=== PATIENT | female | born 1950 | race Caucasian/White ===

== ENCOUNTER → 2020-08-28 | Outpatient (CLI) | payer MEDICARE, OTHER ==
--- NOTE | 2020-08-28 13:43 | KCIC ---
DEXA INDICATION: Osteoporosis screening. Postmenopausal screening COMPARISON: None. TECHNIQUE: Bone densitometry was performed through the lumbar spine and proximal femur. FINDINGS: Lumbar Spine: BMD: 1.15 T-Score: 0.9 Proximal Femur: BMD: 0.85 T-Score: -0.7 IMPRESSION: 1. Lumbar spine falls within the normal range. 2. Proximal femur falls within the lower limits of normal range. Electronically signed by: Fidencio Mckeon MD (08/28/2020 1:40 PM) [id number]
--- NOTE | 2020-08-29 19:26 | KCIC ---
BILATERAL SCREENING MAMMOGRAM History: Routine screening. Comparison: Bilateral mammogram May 01, 2016 and back to 2011. Technique: Routine bilateral digital mammogram views were obtained. Findings: Breast Tissue Density B : There are scattered areas of fibroglandular density. There is a tiny nodular asymmetry in the left breast best seen on the MLO view, probably near the 4:00 B position. There are no dominant masses, suspicious microcalcifications, or architectural distortion. IMPRESSION: Tiny nodular asymmetry in the left breast. Recommend further evaluation with spot compression left MLO and CC digital views. If finding persists ultrasound is recommended. BI-RADS Category 0: Incomplete: Need additional imaging evaluation. The images were reviewed with computer aided detection. Patient information is entered into the reminder system with a target due date for the next screening mammogram. Mammography is the most sensitive method for finding small breast cancers, but it does not detect them all and is not a substitute for careful clinical examination. A negative mammogram does not negate a clinically suspicious finding and should not result in delay in biopsying a clinically suspicious abnormality. "Our facility is accredited by the [employer] Mammography Program." Electronically signed by: Mak Hickey MD (08/29/2020 7:23 PM) [facility]
== END ==
LOC: KCIC MAMMO 10:34
PROVIDERS: ATTEND Internal Medicine
DX: Z12.31 Encounter for screening mammogram for malignant neoplasm of breast (principal); M81.8 Other osteoporosis without current pathological fracture; N64.89 Other specified disorders of breast
CPT/HCPCS: 77067; 77080

== ENCOUNTER → 2020-09-05 | Outpatient (CLI) | payer MEDICARE, OTHER ==
--- NOTE | 2020-09-05 09:38 | RAD ---
US THYROID: 09/05/2020 6:46 AM Indication: 69 years old Female. Thyroid nodule Comparison: None. TECHNIQUE: Sonographic evaluation of the thyroid gland was performed utilizing grayscale and color Do ppler imaging. FINDINGS: Right lobe: Normal in morphology and echotexture without significant hyperemia. Size: 5.5 x 2.0 x 2.1 cm Nodules: No suspicious nodules. Left lobe: Normal in morphology and echotexture without significant hyperemia. Size: 5.8 x 1.8 x 2.0 cm Nodules: No suspicious nodules. Isthmus: 3 mm and within normal limits. IMPRESSION: 1. No suspicious thyroid nodules identified. Electronically signed by: Debbie Piña MD (09/05/2020 9:35 AM) [id number]
== END ==
LOC: US 06:48
PROVIDERS: ATTEND Internal Medicine
DX: E04.1 Nontoxic single thyroid nodule (principal)
CPT/HCPCS: 76536

== ENCOUNTER → 2020-09-18 | Outpatient (CLI) | payer MEDICARE, OTHER ==
--- NOTE | 2020-09-18 15:37 | RAD ---
Examination: 1. Left digital diagnostic mammogram. 2. Limited left breast ultrasound. INDICATION: 69-year-old woman recalled from screening for a nodular asymmetry in the lower outer quad rant left breast. COMPARISON: Mammograms of 02/05/2012, 08/28/2020. TECHNIQUE: Spot compression views of the left breast in the CC and MLO projections were obtained with 2-D technique in addition to full field left ML view. This was reviewed with computer-aided detectio n. Targeted ultrasound of the lower outer quadrant left breast was next pursued. FINDINGS: Heterogeneously dense breast parenchyma. Additional mammographic views left breast show gradual involution in breast tissue density from 8 yea rs ago with greater conspicuity of a 7 mm isodense mass with obscured margins in the posterior lower outer quadrant left breast associated with a coarse calcification that has been present since at leas t 2011. Targeted ultrasound of the lower outer quadrant left breast identifies a hypoechoic slightly irregula r 1.2 cm mass in the posterior left breast at the 3:30 o'clock position 6 cm from the nipple that lik evelyn correlates with the mammographic finding recalled from screening. Patient reports she is preparing to travel to the [facility] for a few months for the [employer] and expresses a preference if a biopsy is to be performed to be done in the immediate near future. IMPRESSION: Suspicious 7 mm mass in the lower outer quadrant left breast at the 3:30 o'clock position 6 cm from t he nipple. BI-RADS Category 4 Findings suspicious for malignancy. Recommend ultrasound-guided core needle left breast biopsy. Alternatively, stereotactic biopsy target ing the mass or the associated calcification could be pursued. Discussed with patient. Also discussed with Dr. Salmeron, who took the report and recommendations by telephone on behalf of the patient's ref erring physician Dr. Jennifer Samuel at 3:11 PM on 09/18/2020. She has requested a fax copy of this report be made available to her. We will attempt to accommodate her request at the earliest available opp[facility]. Electronically signed by: Anh Lee MD (09/18/2020 3:34 PM) [id number]
--- NOTE | 2020-09-18 15:37 | RAD ---
Examination: 1. Left digital diagnostic mammogram. 2. Limited left breast ultrasound. INDICATION: 69-year-old woman recalled from screening for a nodular asymmetry in the lower outer quad rant left breast. COMPARISON: Mammograms of 02/05/2012, 08/28/2020. TECHNIQUE: Spot compression views of the left breast in the CC and MLO projections were obtained with 2-D technique in addition to full field left ML view. This was reviewed with computer-aided detectio n. Targeted ultrasound of the lower outer quadrant left breast was next pursued. FINDINGS: Heterogeneously dense breast parenchyma. Additional mammographic views left breast show gradual involution in breast tissue density from 8 yea rs ago with greater conspicuity of a 7 mm isodense mass with obscured margins in the posterior lower outer quadrant left breast associated with a coarse calcification that has been present since at leas t 2011. Targeted ultrasound of the lower outer quadrant left breast identifies a hypoechoic slightly irregula r 1.2 cm mass in the posterior left breast at the 3:30 o'clock position 6 cm from the nipple that lik evelyn correlates with the mammographic finding recalled from screening. Patient reports she is preparing to travel to the [facility] for a few months for the [employer] and expresses a preference if a biopsy is to be performed to be done in the immediate near future. IMPRESSION: Suspicious 7 mm mass in the lower outer quadrant left breast at the 3:30 o'clock position 6 cm from t he nipple. BI-RADS Category 4 Findings suspicious for malignancy. Recommend ultrasound-guided core needle left breast biopsy. Alternatively, stereotactic biopsy target ing the mass or the associated calcification could be pursued. Discussed with patient. Also discussed with Dr. Salmeron, who took the report and recommendations by telephone on behalf of the patient's ref erring physician Dr. Jennifer Samuel at 3:11 PM on 09/18/2020. She has requested a fax copy of this report be made available to her. We will attempt to accommodate her request at the earliest available oppor [facility]. Electronically signed by: Anh Lee MD (09/18/2020 3:34 PM) [id number]
== END ==
LOC: MAMMO 14:05
PROVIDERS: ATTEND Internal Medicine
DX: R92.8 Other abnormal and inconclusive findings on diagnostic imaging of breast (principal); N63.20 Unspecified lump in the left breast, unspecified quadrant
CPT/HCPCS: 76641; 77065